=== PATIENT | female | born 1995 | race Caucasian/White ===

== ENCOUNTER 2021-02-16 23:00 | Emergency (ER) | payer OTHER ==
[2021-02-17 00:15] VITALS: BP 106/69; PULSE 86; RESP 22; TEMP 98.4
[2021-02-17 00:55] LABS: Amorphous Sediment,Urine Rare /hpf; Appearance,Urine Cloudy (Clear); Bacteria,Urine Few /hpf; Bilirubin,Urine Negative (Negative); Blood,Urine Negative (Negative); Color,Urine Colorless; Glucose,Urine (UA) Negative (Negative); Ketones,Urine Negative (Negative); Leukocyte Esterase,Urine Negative (Negative); Nitrite,Urine Negative (Negative); PH, Urine 5.5 (5.0-8.0); Protein,Urine Negative (Negative); RBC,Urine 1 /hpf (0-5); Specific Gravity,Urine 1.004 (1.001-1.035); Squamous Epithelial Cell,Urine 6 /hpf (0-4); Urobilinogen,Urine <2.0 mg/dL (<2.0); WBC,Urine 2 /hpf (0-5)
== END 2021-02-17 02:49 | disposition left against medical advice (07) ==
LOC: EC 23:00
DX: Z53.21 Procedure and treatment not carried out due to patient leaving prior to being seen by health care provider (principal)
CPT/HCPCS: 81001; 81025; 99499

== ENCOUNTER 2021-03-21 03:39 | Emergency (ER) | payer OTHER ==
[2021-03-21 03:48] VITALS: TEMP 98.3
--- NOTE | 2021-03-21 04:56 | ED ---
Overdose HPI - General Chief Complaint: Overdose Stated Complaint: Overdose Time Seen by Provider: 03/21/21 03:55 Source: patient, EMS Mode of arrival: EMS Limitations: no limitations - History of Present Illness Initial Comments: This patient is 26-year-old woman who presents to be evaluated after she had passed out shortly after she snorts heroin. Her boyfriend was concerned she may have accidentally overdosed and he did administer Narcan. The patient is currently without complaints. She denies any suicidal ideation MD Complaint: accidental overdose -: minutes(s) How Overdose Was Discovered: family/friend present at time Context: Accidental Overdose: wanted to get high - Related Data Home Medications Medication Instructions Recorded Confirmed No Known Home Medications 03/21/21 03/21/21 Allergies Allergy/AdvReac Type Severity Reaction Status Date / Time aspirin AdvReac thins blood Verified 03/21/21 07:44 Review of Systems ROS Statement: Those systems with pertinent positive or pertinent negative responses have been documented in the HPI. ROS Other: All systems not noted in ROS Statement are negative. Constitutional: Denies: fever, chills Respiratory: Denies: cough, dyspnea Cardiovascular: Reports: syncope. Denies: chest pain, palpitations, edema Gastrointestinal: Denies: abdominal pain, nausea, vomiting, diarrhea Skin: Denies: rash Neurological: Denies: headache, weakness, numbness Psychiatric: Denies: depression, homicidal thoughts, suicidal thoughts Past Medical History Additional Past Medical History / Comment(s): [place] History of Any Multi-Drug Resistant Organisms: None Reported Past Surgical History: Ear Surgery Past Psychological History: Anxiety, Depression, No Psychological Hx Reported, PTSD Smoking Status: Current every day smoker Past Alcohol Use History: None Reported Past Drug Use History: None Reported, Heroin, Marijuana General Exam Limitations: no limitations General appearance: alert, in no apparent distress Head exam: Present: atraumatic, normocephalic Eye exam: Present: normal appearance. Absent: scleral icterus, conjunctival injection Neck exam: Present: normal inspection Respiratory exam: Present: normal lung sounds bilaterally. Absent: respiratory distress, wheezes, rales, rhonchi, stridor Cardiovascular Exam: Present: regular rate, normal rhythm, normal heart sounds. Absent: systolic murmur, diastolic murmur, rubs, gallop GI/Abdominal exam: Present: soft. Absent: distended, tenderness, guarding, rebound, rigid, mass Extremities exam: Present: normal inspection, normal capillary refill Back exam: Present: normal inspection Neurological exam: Present: alert, oriented X3 Psychiatric exam: Present: normal mood. Absent: homicidal ideation, suicidal ideation Skin exam: Present: warm, dry, intact, normal color. Absent: rash Course Vital Signs 03/21/21 03/21/21 03/21/21 03:41 04:00 07:45 Temperature 98.3 F Pulse Rate 112 H 103 H 77 Respiratory 18 18 15 Rate Blood Pressure 126/82 121/93 108/70 O2 Sat by Pulse 100 100 100 Oximetry Medical Decision Making - EKG Data -: EKG Interpreted by [facility] EKG shows normal: sinus rhythm, axis (Normal), intervals (Normal), QRS complexes (Normal), ST-T waves (Normal) Rate: tachycardia (Rate 108 bpm) Disposition Clinical Impression: Accidental heroin overdose Disposition: HOME SELF-CARE Condition: Good Instructions (If sedation given, give patient instructions): Adult Overdose (ED) Is patient prescribed a controlled substance at d/c from ED?: No Referrals: None,Stated [Primary Care Provider] - 1-2 days
[2021-03-21 07:47] VITALS: BP 108/70; PULSE 77; RESP 15
== END 2021-03-21 08:14 | disposition home or self-care (01) ==
LOC: EC 03:39
DX: T40.1X1A Poisoning by heroin, accidental (unintentional), initial encounter (principal); F41.9 Anxiety disorder, unspecified; F32.A Depression, unspecified; F43.12 Post-traumatic stress disorder, chronic; F17.200 Nicotine dependence, unspecified, uncomplicated; F12.90 Cannabis use, unspecified, uncomplicated
CPT/HCPCS: 99284

== ENCOUNTER 2021-05-11 11:32 | Emergency (ER) | payer OTHER ==
--- NOTE | 2021-05-11 12:03 | ED ---
Recheck HPI - General Chief Complaint: Recheck/Abnormal Lab/Rx Stated Complaint: wants preg test Time Seen by Provider: 05/11/21 11:40 Source: patient, RN notes reviewed Mode of arrival: ambulatory Limitations: no limitations - History of Present Illness Initial Comments: This is a pleasant 26-year-old female who presents emergency department requesting a test. Patient states that she had 2 positive tests at home and went to the clinic and had a negative test. Patient states this occurred on the and of this month. Patient denies any other symptomology. Last menstrual period was in December. Patient states she does have a history of irregular menses. No headache, no fever or chills, no changes in vision or hearing, no sore throat or difficulty with speech, no neck pain, no chest pain or shortness of breath, no abdominal pain, no nausea or vomiting, no changes in urination or bowel movements, no numbness or tingling, no extremity pain, no skin rashes or lesions. - Related Data Home Medications Medication Instructions Recorded Confirmed No Known Home Medications 03/21/21 03/21/21 Allergies Allergy/AdvReac Type Severity Reaction Status Date / Time aspirin AdvReac thins blood Verified 03/21/21 07:44 Review of Systems ROS Statement: Those systems with pertinent positive or pertinent negative responses have been documented in the HPI. ROS Other: All systems not noted in ROS Statement are negative. Past Medical History Additional Past Medical History / Comment(s): [place] History of Any Multi-Drug Resistant Organisms: None Reported Past Surgical History: Ear Surgery Past Psychological History: Anxiety, Depression, No Psychological Hx Reported, PTSD Smoking Status: Current every day smoker Past Alcohol Use History: None Reported Past Drug Use History: None Reported, Heroin, Marijuana General Exam Limitations: no limitations General appearance: alert, in no apparent distress Head exam: Present: atraumatic, normocephalic, normal inspection Eye exam: Present: normal appearance, PERRL, EOMI. Absent: scleral icterus, conjunctival injection, periorbital swelling ENT exam: Present: normal exam, mucous membranes moist Neck exam: Present: normal inspection. Absent: tenderness, meningismus, lymphadenopathy Respiratory exam: Present: normal lung sounds bilaterally. Absent: respiratory distress, wheezes, rales, rhonchi, stridor Cardiovascular Exam: Present: regular rate, normal rhythm, normal heart sounds. Absent: systolic murmur, diastolic murmur, rubs, gallop, clicks GI/Abdominal exam: Present: soft, normal bowel sounds. Absent: distended, tenderness, guarding, rebound, rigid Extremities exam: Present: normal inspection, full ROM, normal capillary refill. Absent: tenderness, pedal edema, joint swelling, calf tenderness Back exam: Present: normal inspection Neurological exam: Present: alert, oriented X3, CN II-XII intact Psychiatric exam: Present: normal affect, normal mood Skin exam: Present: warm, dry, intact, normal color. Absent: rash Course Vital Signs 05/11/21 11:33 Temperature 99.1 F Pulse Rate 93 Respiratory 18 Rate Blood Pressure 105/74 O2 Sat by Pulse 100 Oximetry Medical Decision Making - Medical Decision Making Asymptomatic patient requesting testing Patient was told to return to the ER for any signs or symptoms worsen. Told to return immediately if any other problems arise. All questions answered. Treatment plan discussed. Patient in agreement Every effort has been made to ensure accuracy of this dictation. However, due to the limitations of electronic medical records and dictation devices, errors in charting still occur. Asymptomatic female again testing negative for . We'll advise a repeat test in 7 days. Patient was told to return to the ER for any signs or symptoms worsen. Told to return immediately if any other problems arise. All questions answered. Treatment plan discussed. Patient in agreement Every effort has been made to ensure accuracy of this dictation. However, due to the limitations of electronic medical records and dictation devices, errors in charting still occur. - Lab Data Lab Results 05/11/21 Range/Units 11:44 Urine HCG, Qual Not Detected (Not Detectd) Disposition Clinical Impression: Encounter for laboratory test Disposition: HOME SELF-CARE Condition: Good Additional Instructions: Follow-up with your regular physician as directed. Return to the ER immediately if any symptoms worsen, new symptoms arise, or any other problems develop. Repeat the test and 7 days if you are still questioning Is patient prescribed a controlled substance at d/c from ED?: No Referrals: Alee Becerra MD [STAFF PHYSICIAN] - 05/18/21 Time of Disposition: 13:08
[2021-05-11 13:24] VITALS: BP 115/77; PULSE 92; RESP 16; TEMP 98.7
== END 2021-05-11 13:23 | disposition home or self-care (01) ==
LOC: EC 11:32
DX: Z32.02 Encounter for pregnancy test, result negative (principal); F41.9 Anxiety disorder, unspecified; F32.A Depression, unspecified; F17.200 Nicotine dependence, unspecified, uncomplicated; F43.10 Post-traumatic stress disorder, unspecified
CPT/HCPCS: 81025; 99282

== ENCOUNTER 2021-06-16 22:56 | Emergency (ER) | payer OTHER ==
[2021-06-17] MEDS ORDERED: ONDANSETRON 4 MG/2 ML VIAL IVP STA (01:11)
[2021-06-17] MEDS ORDERED: SODIUM CHLORIDE 0.9% 1,000 ML IV STA (01:11)
[2021-06-17 01:31] LABS: Basophils # (A) 0.1 k/uL (0-0.2); Basophils % (A) 1 %; Eosinophils # (A) 0.1 k/uL (0-0.7); Eosinophils % (A) 2 %; HCT 37.8 % (34.0-46.0); HGB 12.4 gm/dL (11.4-16.0); Lymphocytes # (A) 2.3 k/uL (1.0-4.8); Lymphocytes % (A) 27 %; MCHC 32.9 g/dL (31.0-37.0); MCV 88.1 fL (80.0-100.0); Mean Platelet Volume 7.3; Monocytes # (A) 0.3 k/uL (0-1.0); Monocytes % (A) 4 %; Neutrophils # (A) 5.5 k/uL (1.3-7.7); Neutrophils % (A) 64 %; Platelet Count 270 k/uL (150-450); RBC 4.29 m/uL (3.80-5.40); RDW 15.1 % (11.5-15.5); WBC 8.5 k/uL (3.8-10.6)
[2021-06-17 01:38] LABS: Appearance,Urine Clear (Clear); Bilirubin,Urine Negative (Negative); Blood,Urine Negative (Negative); Color,Urine Yellow; Glucose,Urine (UA) Negative (Negative); Ketones,Urine Negative (Negative); Leukocyte Esterase,Urine Small (Negative); Mucus,Urine Few /hpf; Nitrite,Urine Negative (Negative); PH, Urine 6.5 (5.0-8.0); Protein,Urine Negative (Negative); RBC,Urine 1 /hpf (0-5); Specific Gravity,Urine 1.016 (1.001-1.035); Squamous Epithelial Cell,Urine 1 /hpf (0-4); Urobilinogen,Urine <2.0 mg/dL (<2.0); WBC,Urine 1 /hpf (0-5)
[2021-06-17 01:40] LABS: ALT 10 U/L (4-34); AST 20 U/L (14-36); African American GFR (CKD) >90 (>60 ml/min/1.73 sqM); Albumin 4.2 g/dL (3.5-5.0); Alkaline Phosphatase 68 U/L (38-126); Anion Gap 8 mmol/L; Blood Urea Nitrogen 13 mg/dL (7-17); Carbon Dioxide 24 mmol/L (22-30); Chloride 107 mmol/L (98-107); Glucose 94 mg/dL (74-99); Lipase 82 U/L (23-300); Non-African American GFR(CKD) >90 (>60 ml/min/1.73 sqM); Potassium 4.6 mmol/L (3.5-5.1); Sodium 139 mmol/L (137-145); Total Bilirubin 0.4 mg/dL (0.2-1.3); Total Protein 7.2 g/dL (6.3-8.2)
[2021-06-17] MEDS ORDERED: KETOROLAC 15 MG/ML 1 ML VIAL IVP STA (01:58)
--- NOTE | 2021-06-17 03:27 | CT ---
EXAMINATION TYPE: CT abdomen pelvis w con DATE OF EXAM: 06/17/2021 COMPARISON: None HISTORY: RLQ pain x 1 day. no previous medical history CT DLP: 524.8 mGycm Automated exposure control for dose reduction was used. CONTRAST: Performed with IV Contrast, patient injected with 100ml mL of Isovue 300. Images obtained from the diaphragm to the floor the pelvis with IV contrast. Lung bases are clear. There is no pleural effusion. Heart size is normal. There is no pericardial eff usion. Liver spleen and stomach pancreas and gallbladder appear intact. The bile ducts are not dilated. Ther e is no adrenal mass. Kidneys show satisfactory contrast opacification. There is no hydronephrosis. D elayed images show normal renal excretion. There is no retroperitoneal adenopathy. Bladder distends s moothly. There is no inguinal hernia. Uterus is slightly retroverted. There is mixed density pelvic mass on the right side that contains fat and soft tissue and probably a tooth. This measures 5.5 cm. There is no free fluid in the pelvis. There is left side pelvic mass posteriorly that measures 3 cm and contains some fat density and could be additional dermoid tumor. The lumbar vertebrae have normal alignment. Posterior elements are intact. There is no compression fr acture. Posterior elements are intact. Bony pelvis intact. Hip joints appear normal. Appendix not see n. No sign of thickened appendix. 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
--- NOTE | 2021-06-17 03:53 | ED ---
General Adult HPI - General Chief complaint: Abdominal Pain Stated complaint: Abd Pain Time Seen by Provider: 06/17/21 00:41 Source: patient, RN notes reviewed Mode of arrival: ambulatory Limitations: no limitations - History of Present Illness Initial comments: 26-year-old female presents to the emergency department for evaluation of right lower quadrant abdominal pain, onset this morning. Patient states her pain is accompanied by mild nausea. States pain also radiates to the right flank. Did not attempt to treat her symptoms prior to arrival. Denies fever, chills, headache, chest pain, shortness of breath, vomiting, diarrhea, constipation, d ysuria, or hematuria. Uncertain of status. - Related Data Previous Rx's Medication Instructions Recorded Ibuprofen [Motrin] 600 mg PO Q8HR PRN #20 tab 06/17/21 Allergies Allergy/AdvReac Type Severity Reaction Status Date / Time aspirin AdvReac thins blood Verified 03/21/21 07:44 Review of Systems ROS Statement: Those systems with pertinent positive or pertinent negative responses have been documented in the HPI. ROS Other: All systems not noted in ROS Statement are negative. Past Medical History Additional Past Medical History / Comment(s): [place] History of Any Multi-Drug Resistant Organisms: None Reported Past Surgical History: Ear Surgery Past Psychological History: Anxiety, Depression, No Psychological Hx Reported, PTSD Smoking Status: Current every day smoker Past Alcohol Use History: None Reported Past Drug Use History: None Reported General Exam Limitations: no limitations (Developed, well-nourished female in no acute distress. Initial temperature 97.6, pulse 74, respirations 16, blood pressure 100/63, pulse ox 98% on room air.) General appearance: alert, in no apparent distress ENT exam: Present: normal exam, normal oropharynx, mucous membranes moist Respiratory exam: Present: normal lung sounds bilaterally. Absent: respiratory distress, wheezes, rales, rhonchi, stridor Cardiovascular Exam: Present: regular rate, normal rhythm, normal heart sounds. Absent: systolic murmur, diastolic murmur, rubs, gallop, clicks GI/Abdominal exam: Present: soft, tenderness (Right lower quadrant abdominal tenderness upon palpation), guarding (Right lower quadrant), normal bowel sounds. Absent: distended, rebound, rigid Back exam: Present: normal inspection, CVA tenderness (R) Neurological exam: Present: alert, oriented X3, CN II-XII intact Psychiatric exam: Present: normal affect, normal mood Skin exam: Present: warm, dry, intact, normal color. Absent: rash Course Vital Signs 06/16/21 06/17/21 23:26 04:10 Temperature 97.6 F 98 F Pulse Rate 74 60 Respiratory 16 17 Rate Blood Pressure 100/63 110/60 O2 Sat by Pulse 98 98 Oximetry - Reevaluation(s) Reevaluation #1: 06/17/21 03:45 Upon reassessment, patient is resting more comfortably and is moving freely. She is not having any nausea or vomiting. CT findings were discussed with juan f marroquin. She is encouraged to follow-up with [facility] for further evaluation and treatment encouraged to take Motrin if needed for this discomfort. Patient verbalizes understanding. Medical Decision Making - Medical Decision Making 26-year-old female with a past medical history von Willebrand disease, anxiety, depression, and PTSD presents to the emergency department for evaluation of right lower quadrant abdominal discomfort, onset this morning. Upon exam, patient is well-appearing and in no acute distress. Vital signs are stable. She does have mild right lower quadrant abdominal pain upon palpation. She also complains of mild nausea. Patient was given IV fluids, pain and nausea medications with improvement. CT of the abdomen and pelvis shows bilateral ovaries with dermoid cysts. Findings were discussed with patient. She is enco uraged to follow up with [facility]. Suggested Motrin if needed for discomfort. Encouraged to utilize heating pad or warm showers to manage pain. Return parameters were discussed in detail. Patient verbalizes understanding and agrees with this plan. Attending: Jacob. - Lab Data Result diagrams: 06/17/21 01:02 06/17/21 01:02 Lab Results 06/17/21 06/17/21 06/17/21 Range/Units 00:45 01:02 01:02 WBC 8.5 (3.8-10.6) k/uL RBC 4.29 (3.80-5.40) m/uL Hgb 12.4 (11.4-16.0) gm/dL Hct 37.8 (34.0-46.0) % MCV 88.1 (80.0-100.0) fL MCH 29.0 (25.0-35.0) pg MCHC 32.9 (31.0-37.0) g/dL RDW 15.1 (11.5-15.5) % Plt Count 270 (150-450) k/uL MPV 7.3 Neutrophils % 64 % Lymphocytes % 27 % Monocytes % 4 % Eosinophils % 2 % Basophils % 1 % Neutrophils # 5.5 (1.3-7.7) k/uL Lymphocytes # 2.3 (1.0-4.8) k/uL Monocytes # 0.3 (0-1.0) k/uL Eosinophils # 0.1 (0-0.7) k/uL Basophils # 0.1 (0-0.2) k/uL Sodium (137-145) mmol/L Potassium (3.5-5.1) mmol/L Chloride (98-107) mmol/L Carbon Dioxide (22-30) mmol/L Anion Gap mmol/L BUN (7-17) mg/dL Creatinine (0.52-1.04) mg/dL Est GFR (CKD-EPI)AfAm (>60 ml/min/1.73 sqM) Est GFR (CKD-EPI)NonAf (>60 ml/min/1.73 sqM) Glucose (74-99) mg/dL Plasma Lactic Acid Carlo (0.7-2.0) mmol/L Calcium (8.4-10.2) mg/dL Total Bilirubin (0.2-1.3) mg/dL AST (14-36) U/L ALT (4-34) U/L Alkaline Phosphatase (38-126) U/L Total Protein (6.3-8.2) g/dL Albumin (3.5-5.0) g/dL Lipase (23-300) U/L Urine Color Yellow Urine Appearance Clear (Clear) Urine pH 6.5 (5.0-8.0) Ur Specific [place] 1.016 (1.001-1.035) Urine Protein Negative (Negative) Urine Glucose (UA) Negative (Negative) Urine Ketones Negative (Negative) Urine Blood Negative (Negative) Urine Nitrite Negative (Negative) Urine Bilirubin Negative (Negative) Urine Urobilinogen <2.0 (<2.0) mg/dL Ur Leukocyte Esterase Small H (Negative) Urine RBC 1 (0-5) /hpf Urine WBC 1 (0-5) /hpf Ur Squamous Epith Cells 1 (0-4) /hpf Urine Mucus Few H (None) /hpf Urine HCG, Qual Not Detected (Not Detectd) 06/17/21 06/17/21 Range/Units 01:02 01:02 WBC (3.8-10.6) k/uL RBC (3.80-5.40) m/uL Hgb (11.4-16.0) gm/dL Hct (34.0-46.0) % MCV (80.0-100.0) fL MCH (25.0-35.0) pg MCHC (31.0-37.0) g/dL RDW (11.5-15.5) % Plt Count (150-450) k/uL MPV Neutrophils % % Lymphocytes % % Monocytes % % Eosinophils % % Basophils % % Neutrophils # (1.3-7.7) k/uL Lymphocytes # (1.0-4.8) k/uL Monocytes # (0-1.0) k/uL Eosinophils # (0-0.7) k/uL Basophils # (0-0.2) k/uL Sodium 139 (137-145) mmol/L Potassium 4.6 (3.5-5.1) mmol/L Chloride 107 (98-107) mmol/L Carbon Dioxide 24 (22-30) mmol/L Anion Gap 8 mmol/L BUN 13 (7-17) mg/dL Creatinine 0.84 (0.52-1.04) mg/dL Est GFR (CKD-EPI)AfAm >90 (>60 ml/min/1.73 sqM) Est GFR (CKD-EPI)NonAf >90 (>60 ml/min/1.73 sqM) Glucose 94 (74-99) mg/dL Plasma Lactic Acid Carlo 0.5 L (0.7-2.0) mmol/L Calcium 9.0 (8.4-10.2) mg/dL Total Bilirubin 0.4 (0.2-1.3) mg/dL AST 20 (14-36) U/L ALT 10 (4-34) U/L Alkaline Phosphatase 68 (38-126) U/L Total Protein 7.2 (6.3-8.2) g/dL Albumin 4.2 (3.5-5.0) g/dL Lipase 82 (23-300) U/L Urine Color Urine Appearance (Clear) Urine pH (5.0-8.0) Ur Specific [place] (1.001-1.035) Urine Protein (Negative) Urine Glucose (UA) (Negative) Urine Ketones (Negative) Urine Blood (Negative) Urine Nitrite (Negative) Urine Bilirubin (Negative) Urine Urobilinogen (<2.0) mg/dL Ur Leukocyte Esterase (Negative) Urine RBC (0-5) /hpf Urine WBC (0-5) /hpf Ur Squamous Epith Cells (0-4) /hpf Urine Mucus (None) /hpf Urine HCG, Qual (Not Detectd) - Radiology Data Radiology results: report reviewed, image reviewed CT of the abdomen and pelvis with contrast was obtained. Report was reviewed in its entirety. Impression per Dr. Sanchez is bilateral pelvic masses consistent with dermoid tumors of the right and left ovary. Disposition Clinical Impression: Abdominal pain, Bilateral dermoid cysts of ovaries Disposition: HOME SELF-CARE Condition: Stable Instructions (If sedation given, give patient instructions): Ovarian Cyst (ED), Acute Abdominal Pain (ED) Additional Instructions: Alternate Tylenol and Motrin if needed for pain. Apply warm compress or heating pad to area(s) of discomfort. Your CT shows bilateral dermoid ovarian cysts. Follow up with [facility] for further evaluation and treatment. Return to the emergency department with any new, worsening, or concerning symptoms. Prescriptions: Ibuprofen [Motrin] 600 mg PO Q8HR PRN #20 tab PRN Reason: Pain Is patient prescribed a controlled substance at d/c from ED?: No Referrals: None,Stated [Primary Care Provider] - 1-2 days Simon Hernandez MD [STAFF PHYSICIAN] - 1-2 days Time of Disposition: 03:52
[2021-06-17 04:11] VITALS: BP 110/60; PULSE 60; RESP 17; TEMP 98
== END 2021-06-17 04:11 | disposition home or self-care (01) ==
LOC: EC 22:56
DX: D27.0 Benign neoplasm of right ovary (principal); D27.1 Benign neoplasm of left ovary; F17.200 Nicotine dependence, unspecified, uncomplicated
CPT/HCPCS: 36415; 80053; 83605; 83690; 85025; 81001; 81025; 74177; 99284; 96374; 96375; 96361 ×2; J2405; J1885; Q9967

== ENCOUNTER 2022-03-31 15:30 | Emergency (ER) | payer OTHER ==
[2022-03-31 15:37] VITALS: BP 142/89; PULSE 100; RESP 20; TEMP 97.4
[2022-03-31] MEDS ORDERED: ACETAMINOPHEN TAB 325 MG TAB PO STA (15:47)
--- NOTE | 2022-03-31 15:50 | ED ---
General Adult HPI - General Chief complaint: Recheck/Abnormal Lab/Rx Stated complaint: early , cramping Time Seen by Provider: 03/31/22 15:44 Source: patient, RN notes reviewed, old records reviewed Mode of arrival: ambulatory Limitations: no limitations - History of Present Illness Initial comments: This is a nontoxic-appearing 27-year-old female that presented to the toilet with complaints of wanting a confirmation on a test. She states that she took a test earlier in the week that was positive. For insurance purposes she is needs confirmation of this is why she is here. She denies any vaginal discharge or vaginal bleeding. No abdominal pain. Occasionally has low back pain that is resolved at this time. No medications on a daily basis. Does have a history of von Willebrand's. She is a P2, G0, spontaneous miscarriage first trimester last year. -: days(s) (2) Location: back (low back) Severity scale (1-10): 0 Consistency: intermittent, now resolved Associated Symptoms: denies other symptoms Treatments Prior to Arrival: none - Related Data Home Medications Medication Instructions Recorded Confirmed No Known Home Medications 03/31/22 03/31/22 Allergies Allergy/AdvReac Type Severity Reaction Status Date / Time aspirin AdvReac thins blood Verified 03/31/22 16:25 Review of Systems ROS Statement: Those systems with pertinent positive or pertinent negative responses have been documented in the HPI. ROS Other: All systems not noted in ROS Statement are negative. Past Medical History Past Medical History: No Reported History Additional Past Medical History / Comment(s): [place] History of Any Multi-Drug Resistant Organisms: None Reported Past Surgical History: Ear Surgery Past Anesthesia/Blood Transfusion Reactions: No Reported Reaction Past Psychological History: Anxiety, Depression, No Psychological Hx Reported, PTSD Smoking Status: Vaper Past Alcohol Use History: None Reported Past Drug Use History: None Reported - Past Family History Mother Family Medical History: Fibromyalgia General Exam Limitations: no limitations General appearance: alert, in no apparent distress Head exam: Present: atraumatic Eye exam: Absent: scleral icterus, conjunctival injection ENT exam: Present: mucous membranes moist Neck exam: Present: full ROM. Absent: tenderness, meningismus Respiratory exam: Absent: respiratory distress, accessory muscle use Cardiovascular Exam: Present: regular rate GI/Abdominal exam: Present: soft Extremities exam: Present: full ROM, normal capillary refill. Absent: tenderness Back exam: Present: full ROM. Absent: tenderness, CVA tenderness (R), CVA tenderness (L), muscle spasm, paraspinal tenderness, vertebral tenderness, rash noted Neurological exam: Present: alert, oriented X3 Psychiatric exam: Present: normal affect, normal mood Skin exam: Present: warm, dry, normal color. Absent: rash, cyanosis, diaphoretic, petechiae, pallor Course Vital Signs 03/31/22 15:35 Temperature 97.4 F L Pulse Rate 100 Respiratory 20 Rate Blood Pressure 142/89 O2 Sat by Pulse 99 Oximetry Medical Decision Making - Medical Decision Making UA negative for or UTI. Patient upset stating that she has taken 2 tests at home that are positive. She denies vaginal bleeding or discharge. She was encouraged to be tested at home within the next week by her primary care doctor. Case discussed with Dr. Walker. Was pt. sent in by a medical professional or institution? @ -No Did you speak to anyone other than the patient for history? @ -No Did you review nursing and triage notes? @ -Yes I agree Were old charts reviewed? @ -No Differential Diagnosis? @ -Patient here for her urine test What testing was considered but not performed? (CT, X-rays, U/S, labs)? Why? @ Ultrasound was considered however patient is not , denies any abdominal pain or vaginal bleeding. Denies any pain at all. What meds were considered but not given? Why? @ -None Did you discuss the management of the patient with other professionals? @ -No Did you reconcile home meds? @ -no Was smoking cessation discussed for >3mins.? @ -no Was critical care preformed (if so, how long)? @ -no Were there social determinants of health that impacted care today? How? (Homelessness, low income, unemployed, alcoholism, drug addiction, transportation, low edu. Level, literacy, decrease access to med. care, longterm, rehab)? @ -none Was there de-escalation of care discussed even if they declined? (Discuss DNR or withdrawal of care, Hospice)? @ -no What co-morbidities impacted this encounter? (DM, HTN, Smoking, COPD, CAD, Cancer, CVA, Hep., AIDS, mental health diagnosis, sleep apnea, morbid obesity)? @ -none Was patient admitted / discharged? @ -discharged Undiagnosed new problem with uncertain prognosis? @ - Drug Therapy requiring intensive monitoring for toxicity (Heparin, Nitro, Insulin, Cardizem)? @ -no Were any procedures done? @ -no Diagnosis/symptom? @ -negative urine Acute, or Chronic, or Acute on Chronic? @ -[default] Uncomplicated (without systemic symptoms) or Complicated (systemic symptoms)? @ -[default] Side effects of treatment? @ -[none] Exacerbation, Progression, or Severe Exacerbation] @ -[no] Poses a threat to life or bodily function? @ -[no] - Lab Data Lab Results 03/31/22 03/31/22 Range/Units 15:51 15:51 Urine Color Light Yellow Urine Appearance Clear (Clear) Urine pH 7.5 (5.0-8.0) Ur Specific [place] 1.012 (1.001-1.035) Urine Protein Negative (Negative) Urine Glucose (UA) Negative (Negative) Urine Ketones Negative (Negative) Urine Blood Negative (Negative) Urine Nitrite Negative (Negative) Urine Bilirubin Negative (Negative) Urine Urobilinogen <2.0 (<2.0) mg/dL Ur Leukocyte Esterase Negative (Negative) Urine HCG, Qual Not Detected (Not Detectd) Disposition Clinical Impression: Negative test Disposition: HOME SELF-CARE Condition: Good Additional Instructions: You can repeat a test next week. Follow-up with your primary care doctor as needed. No evidence of today. Is patient prescribed a controlled substance at d/c from ED?: No Referrals: None,Stated [Primary Care Provider] - 1-2 days Time of Disposition: 16:30
[2022-03-31 16:00] LABS: Appearance,Urine Clear (Clear); Bilirubin,Urine Negative (Negative); Blood,Urine Negative (Negative); Color,Urine Light Yellow; Glucose,Urine (UA) Negative (Negative); Ketones,Urine Negative (Negative); Leukocyte Esterase,Urine Negative (Negative); Nitrite,Urine Negative (Negative); PH, Urine 7.5 (5.0-8.0); Protein,Urine Negative (Negative); Specific Gravity,Urine 1.012 (1.001-1.035); Urobilinogen,Urine <2.0 mg/dL (<2.0)
== END 2022-03-31 16:50 | disposition home or self-care (01) ==
LOC: EC 15:30
DX: Z32.02 Encounter for pregnancy test, result negative (principal); F41.9 Anxiety disorder, unspecified; F32.A Depression, unspecified; F17.290 Nicotine dependence, other tobacco product, uncomplicated; Z88.6 Allergy status to analgesic agent
CPT/HCPCS: 81003; 81025; 99282